=== PATIENT | female | born 1995 | race African-American/Black ===

== ENCOUNTER 2017-04-28 19:11 | Emergency (ER) | payer MEDICAID, OTHER ==
[~2017-04-28] VITALS: Ht 172.7 cm; Wt 100.0 kg
[2017-04-29] MEDS ORDERED: DEXAMETHASONE 10 MG/ML VIAL IM ONE (03:00)
[2017-04-29] MEDS ORDERED: KETOROLAC 60MG/2ML VIAL IM ONE (03:30)
[2017-04-29 05:58] VITALS: BP 126/75
== END 2017-04-29 06:03 | disposition home or self-care (01) ==
LOC: ER 19:30
DX: J06.9 Acute upper respiratory infection, unspecified (principal); J02.9 Acute pharyngitis, unspecified; F17.200 Nicotine dependence, unspecified, uncomplicated; F12.10 Cannabis abuse, uncomplicated; Z91.013 Allergy to seafood; Z91.048 Other nonmedicinal substance allergy status
CPT/HCPCS: 71010; 81025; 87070; 87430; 96372; 99285; J1100; J1885